=== PATIENT | male | born 1965 | race Caucasian/White ===

== ENCOUNTER 2019-08-19 15:42 | Inpatient (IN) | payer MEDICAID, OTHER ==
[~2019-08-19] VITALS: Ht 172.7 cm; Wt 95.3 kg
[2019-08-19] VITALS: BP 122/80
[2019-08-19 17:39] LABS: BASOPHILS % 0.5 % (0.0-2.0); EOSINOPHILS % 1.6 % (0.0-5.0); HEMATOCRIT. 50.6 % (42.0-52.0); HEMOGLOBIN. 17.8 g/dL (14.0-18.0); LYMPHOCYTES % 22.9 % (20.0-50.0); MEAN CORPUSCULAR HEMOGLOBIN 32.4 pg (28.0-32.0); MEAN CORPUSCULAR VOLUME 92.1 fL (80.0-94.0); MEAN PLATELET VOLUME 7.2 fl (7.4-10.4); MONOCYTES % 7.4 % (2.0-8.0); NEUTROPHILS % 67.6 % (40.0-76.0); PLATELET 346 x1000/uL (130-400); RED CELL DISTRIBUTION WIDTH 13.9 % (11.6-14.6)
[2019-08-19 17:49] LABS: CHLORIDE 107 mEq/L (98-107)
[2019-08-19] MEDS ORDERED: ASPIRIN 81MG TABLET PO ONE (19:00)
[2019-08-19] MEDS ORDERED: NITROGLYCERIN 0.4MG TABLET SL SL ONE (19:00)
[2019-08-19] MEDS ORDERED: MORPHINE SULFATE 2 MG/ML CPJ (NOT FOR IM USE) IV PRN (22:30)
[2019-08-19] MEDS ORDERED: ONDANSETRON HCL 4MG/2ML INJ IV PRN (22:30)
[2019-08-19] MEDS ORDERED: GUAIFENESIN 200MG/10ML SUGAR FREE UDC PO PRN (22:30)
[2019-08-19] MEDS ORDERED: HYDROCODONE/ACETAMINOPHEN 5/325MG TABLET PO PRN (22:30)
[2019-08-19] MEDS ORDERED: DOCUSATE SODIUM 100MG CAPSULE PO PRN (22:30)
[2019-08-19] MEDS ORDERED: ACETAMINOPHEN 325MG TABLET PO PRN (22:30)
[2019-08-19 23:49] VITALS: BP 137/84
[2019-08-20 04:00] VITALS: BP 118/71
[2019-08-20 06:51] LABS: BASOPHILS % 0.5 % (0.0-2.0); EOSINOPHILS % 2.2 % (0.0-5.0); HEMOGLOBIN. 16.6 g/dL (14.0-18.0); LYMPHOCYTES % 26.2 % (20.0-50.0); MEAN CORPUSCULAR HEMOGLOBIN 31.8 pg (28.0-32.0); MEAN CORPUSCULAR VOLUME 91.8 fL (80.0-94.0); MEAN PLATELET VOLUME 7.1 fl (7.4-10.4); MONOCYTES % 9.2 % (2.0-8.0); NEUTROPHILS % 61.9 % (40.0-76.0); PLATELET 297 x1000/uL (130-400); RED BLOOD CELL COUNT 5.23 mill/uL (4.7-6.1); RED CELL DISTRIBUTION WIDTH 13.8 % (11.6-14.6)
[2019-08-20 07:11] LABS: CHLORIDE 108 mEq/L (98-107)
[2019-08-20 07:27] LABS: LDL CHOLESTEROL 120 mg/dL (5-100)
[2019-08-20 07:28] LABS: CREATINE KINASE 61 IU/L (39-308); HDL CHOLESTEROL 37 mg/dL (40-59)
[2019-08-20 07:32] LABS: CREATINE KINASE MB FRACTION 1.3 ng/mL (0.5-3.6)
[2019-08-20 08:00] VITALS: BP 120/80
[2019-08-20] MEDS: AMLODIPINE 10MG TABLET PO SCH (09:13)
[2019-08-20] MEDS: ENOXAPARIN 30MG/0.3ML SYR SUBCUT SCH ×2 (09:13→21:39)
[2019-08-20] MEDS ORDERED: REGADENOSON 0.4 MG/5 ML IV ONE (10:45)
[2019-08-20] MEDS: ASPIRIN 81MG EC TABLET PO SCH (11:53)
[2019-08-20 12:00] VITALS: BP 126/84
[2019-08-20 16:00] VITALS: BP 115/70
[2019-08-20 20:00] VITALS: BP 120/79
[2019-08-20] MEDS ORDERED: ATORVASTATIN CALCIUM 10MG TABLET PO SCH (21:00)
[2019-08-20 21:28] LABS: CREATINE KINASE 71 IU/L (39-308)
[2019-08-20 21:29] LABS: CREATINE KINASE MB FRACTION < 1.0 ng/mL (0.5-3.6)
[2019-08-21] VITALS: BP 118/80
[2019-08-21 04:00] VITALS: BP 111/71
[2019-08-21 06:41] LABS: BASOPHILS % 0.5 % (0.0-2.0); EOSINOPHILS % 2.3 % (0.0-5.0); HEMATOCRIT. 48.8 % (42.0-52.0); HEMOGLOBIN. 16.9 g/dL (14.0-18.0); LYMPHOCYTES % 26.6 % (20.0-50.0); MEAN CORPUSCULAR VOLUME 92.1 fL (80.0-94.0); MEAN PLATELET VOLUME 7.1 fl (7.4-10.4); MONOCYTES % 7.8 % (2.0-8.0); NEUTROPHILS % 62.8 % (40.0-76.0); PLATELET 290 x1000/uL (130-400); RED CELL DISTRIBUTION WIDTH 13.5 % (11.6-14.6)
[2019-08-21 06:51] LABS: CHLORIDE 107 mEq/L (98-107)
[2019-08-21 08:00] VITALS: BP 117/82
[2019-08-21] MEDS ORDERED: REGADENOSON 0.4 MG/5 ML IV ONE (08:58)
[2019-08-21] MEDS: ENOXAPARIN 30MG/0.3ML SYR SUBCUT SCH (11:11)
[2019-08-21] MEDS: ASPIRIN 81MG EC TABLET PO SCH (11:11)
[2019-08-21] MEDS: AMLODIPINE 10MG TABLET PO SCH (11:11)
[2019-08-21 12:00] VITALS: BP 128/89
[2019-08-21 12:54] VITALS: BP 128/89
== END 2019-08-21 13:45 | disposition home or self-care (01) | DRG 198 ==
LOC: ER 15:42 → 7WST 19:23 → EDBEDREQ 19:25 → EDBEDREQTM 19:25 → ENRESERV 20:38
PROVIDERS: ADMIT Hospitalist; ATTEND Hospitalist
DX: I25.110 Atherosclerotic heart disease of native coronary artery with unstable angina pectoris (principal); I11.9 Hypertensive heart disease without heart failure; E78.5 Hyperlipidemia, unspecified; F17.210 Nicotine dependence, cigarettes, uncomplicated; I25.2 Old myocardial infarction; Z95.5 Presence of coronary angioplasty implant and graft; Z88.9 Allergy status to unspecified drugs, medicaments and biological substances; Z82.49 Family history of ischemic heart disease and other diseases of the circulatory system; Z79.82 Long term (current) use of aspirin
CPT/HCPCS: 36415; 71045; 78452; 80048; 80061; 82550; 82553; 83880; 84484; 93005; 93017; 93306; 93970; 99285; 99406; A9500; J1650; J2785